=== PATIENT | female | born 1965 | race Caucasian/White ===

== ENCOUNTER 2025-02-07 13:13 | Outpatient (AMB) | payer MEDICARE, SELFPAY ==
--- NOTE | 2025-02-07 13:23 | MHC.AMNUTRGE ---
VS Expanded 02/07/25 13:41 02/20/25 09:20 Height 5 ft 4 in 5 ft 4 in Weight 183 lb 6.793 oz 183 lb BMI 31.5 31.4 Intake Visit Reasons: Obesity Nutrition Presentation Details: Pt presents for MNT for obesity class 1 Pt reports lack of meal routine, wants to work on meal planning food frequency fruits: 0-1/d vex/wk dairy :1-2/d fish: 0-1/wk starches >20 beverages: water, juice, low sugar beverages, tea, physical activity: ADL etoh/smoking----- take vit c 500 mg /d and vit d (4000 mcg/d) SAX-Sfryasp-Eg.Jeor Equation Height: 5 ft 4 in Weight: 183 lb Resting Metabolic Rate: 1384.12 Calculated Activity Level: Sedentary Calories Needed to Maintain Weight: 1660.94 Diagnosis Nutrition problem #1: overweight/obesity As related to (etiology) #1: diagnosis As evidenced by (sign/symptom) #1: knowledge deficit of diet Assessment & Plan Assessment & Plan (1) Obesity (BMI 30.0-34.9): Code(s): E66.811 - Obesity, class 1 Category: Medical Plan: current wt: 83 kg (03/02 ) est kcal needs as per MSJ: 1700 est protein needs as per 1 g/kg BW: 80 est fluid needs as per 30 ml/kg BW: 2500 Recommended fiber > 12 g /day and gradually increase up to 25-28 g /day or as tolerated Nutrition topics discussed : Reviewed (R), Pt verbalized understanding (V) , not applicable (N/A) R, : Healthy Plate Method Concept: R, V, N/A: Carbohydrates: food sources of carbohydrates, relationship of carbohydrates to blood glucose, fatty liver GI health. Recommended total amount of carbohydrates per meals and snack. Differences between simple carbohydrates and complex carbohydrates R, V, N/A: Lean protein foods including vegan , vegetarian sources of protein. Benefits of protein (including but not limited to healing, nutritional value , benefits in weight loss, glucose control R, : Fats : Source of fats, benefits of fats. Difference between saturated and unsaturated fats. Saturated fats and its contribution to inflammation R, V, N/A: Fiber: food sources and role of fiber in the diet (including but not limited to its role as a prebiotic, benefits in constipation, role in IBS , role in glucose control and cholesterol level) R, V, N/A: Hydration: role of hydration and prevention of dehydration or over hydration. Foods and water content. R, V, N/A: Vitamins and Minerals in foods and supplements R, V, N/A: Interpreting food labels, including serving size, macronutrients, vitamins, minerals, allergens, ingredient list , % daily value Patient Instructions: practice mindful eating follow healthy plate method at dinner (reduce total carb to 45-60 at dinner Coding Level of Care Code Nutr Indiv Intake (52917) Diagnoses Obesity (BMI 30.0-34.9) E66.811 Time Spent (min) 30
[2025-02-07 13:41] VITALS: BMI 31.5
--- OUTSIDE RECORDS SUMMARY | 2025-02-07 14:43 | XMS_ITS | Clinical Summary ---
Author Organization [facility] Address [address] [place] [address] Care Team Providers Care Roller Billet Mill Name Role Phone Eula Phillips APRN Primary Care Provider [phone] Social History Tobacco Use Types Packs/Day Years Used Date Smoking Tobacco: Never Assessed Comments Unknown Sex and Gender Information Value Date Recorded Sex Assigned at Not on file Legal Sex Female 3:33 PM EDT Gender Identity Not on file Sexual Orientation Not on file Plan of Treatment Health Maintenance Due Date Last Done Comments Hepatitis C Virus Screening 1963 HIV Screening 1976 DTaP/Tdap/Td Vaccines (1 - Tdap) 1982 Pneumococcal Vaccines 50+ (1 of 1 - PCV) 2013 Zoster (Shingles) Vaccine (1 of 2) 2013 COVID-19 Vaccine ( - 2023-2 5 season) 2025 RSV Vaccine 60 years and old er and Patients (1 - 1-dose 75+ series) 2038 Hepatitis B Vaccines Aged Out No long er eligible based on patient's age to complete this topic Care Teams Roller Billet Mill Relationship Specialty Start Date End Date Eula Phillips APRN PCP - General 03/02/21
--- OUTSIDE RECORDS SUMMARY | 2025-02-07 14:43 | XMS_ITS | Encounter Summary ---
Author Organization [facility] Address [address] [place] [address] Care Team Providers Care Cyanide Case Hardener Name Role Phone Eula Phillips APRN Primary Care Provider Encounter Details Date Type Department Care Team (Late st Contact Info) Description 03/02/2021 Scanned Document [facility] [address] [facility] [address] [place] [address] Provider, Rolanda, [address] [place] [address] Social History Tobacco Use Types Packs/Day Years Used Date Smoking Tobacco: Never Assessed Comments Unknown Sex and Gender Information Value Date Recorded Sex Assigned at Not on file Legal Sex Female 3:33 PM EDT Gender Identity Not on file Sexual Orientation Not on file documented as of this encounter Plan of Treatment Not on file documented as of this encounter Visit Diagnoses Not on filedocumented in this encounter Care Teams Cyanide Case Hardener Relationship Specialty Start Date End Date Eula Phillips APRN PCP - General 03/02/21 documented as of this encounter
--- OUTSIDE RECORDS SUMMARY | 2025-02-07 14:43 | XMS_ITS | Clinical Summary ---
[facility] Address [address] [place] [phone] Phone Care Team Providers Care Hearing Aid Assistant Name Role Phone Edin So MD Primary Care Provider [phone] Allergies No known active allergies Medications ascorbic acid, vitamin C, 500 mg capsule Take 500 mg by mouth. Active cholecalciferol (VITAMIN D-3) 5,000 Units tablet Take 4,000 mcg by mouth. Active lactobacillus acidoph-l.bulga r 100 million cell granules in packet Take 1 packet by mouth. Active ketoconazole (NIZORAL) 2 % cream Apply topically 1 (one) time each day. 30 g 2 Active Active Problems No known active problems Encounters Date Type Department Care Team Description 01/22/2025 1:30 PM EDT Office Visit Orthopedic Surgery [facility] [address] [facility] [address] [place] [address] Chris Santacruz DPM Fungal toenail infection 01/14/2025 9:30 AM EDT Treatment [facility] [address] [facility] [address] [place] [phone] Akhil Merida PTA Tightness of neck (Primary Dx) 01/11/2025 12:30 PM EDT Treatment [address] [address] Akhil Merida, ACCESS REPRESENTATIVE Tightness of neck (Primary Dx) 01/09/2025 12:30 PM EDT Treatment [address] [address] Samira Aguila, PT Tightness of neck (Primary Dx) 01/03/2025 1:30 PM EDT Treatment [address] [address] Akhil Merida, ACCESS REPRESENTATIVE Tightness of neck (Primary Dx) 12/26/2024 10:30 AM EDT Treatment [address] [phone] Akhil Merida, ACCESS REPRESENTATIVE Tightness of neck (Primary Dx) 12/24/2024 11:30 AM EDT Treatment [address] [address] Jim Avina, ACCESS REPRESENTATIVE Tightness of neck (Primary Dx) 12/18/2024 10:00 AM EDT Evaluation [address] [address] Samira Aguila, PT Tightness of neck 12/18/2024 Telephone Internal Medicine - [facility] [address] [place] [phone] Edin So MD from Last 3 Months Immunizations Immunization Administration Dates Next Due Tdap Tetanus diptheria acell ular pertussis (Boostrix; Adacel) 7yo and older 04/18/2018 Surgical History Surgery Date Site/Laterality Comments TONSILLECTOMY PROCEDURE: HISTORICAL TONSILLECTOMY Medical History Medical History Date Comments Depression DX:Depression Family History Medical History Relation Name Comments Hypertension Father No Known Problems Maternal Grandfather No Known Problems Maternal Grandmother Hypertension Mother No Known Problems Paternal Grandfather Stomach cancer Paternal Grandmother No Known Problems Sister 1 No Known Problems Sister 2 Breast cancer Neg Hx Relation Name Status Comments Father Maternal Grandfather Maternal Grandmother Mother Paternal Grandfather Paternal Grandmother Sister 1 Alive Sister 2 Alive Social History Tobacco Use Types Packs/Day Years Used Date Smoking Tobacco: Former Cigarettes Q uit: 05/09/2005 Smokeless Tobacco: Never Tobacco Cessation:Counseling Given: Not Answered Alcohol Use Standard Drinks/Week Comments Not Currently 0 (1 standard drink = 0.6 oz pur e alcohol) Comments No Sex and Gender Information Value Date Recorded Sex Assigned at Female 11/02/2024 2:01 PM EDT Legal Sex Female 4:00 PM EST Gender Identity Female 11/02/2024 2:01 PM EDT Sexual Orientation Not on file Obstetrics History Last Filed Vital Signs Vital Sign Reading Time Taken Comments Blood Pressure 135/80 10/31/2024 2:10 PM EDT Pulse 62 10/31/2024 1:49 PM EDT Temperature - - Respiratory Rate - - Oxygen Saturation - - Inhaled Oxygen Concentration - - Weight 83.6 kg (184 lb 3.2 oz) 10/31/2024 1:49 P M EDT Height 162.6 cm (5' 4 ) 10/31/2024 1:49 PM EDT Body Mass Index 31.62 10/31/2024 1:49 PM EDT Plan of Treatment Upcoming Encounters Date Type Department Care Team (Late st Contact Info) Description 04/10/2025 1:00 PM EST Office Visit Orthopedic Surgery [facility] [address] [phone] Chris Santacruz DPM [address] [phone] 11/01/2025 11:30 AM EDT Office Visit Internal Medicine - [facility] [address] [place] [address] Edin So MD [address] [place] [address] Health Maintenance Due Date Last Done Comments Cholesterol Screening (Lipid Panel) 04/07/2022 Colorectal Cancer Screening: Stool Based Tests (FOBT/FIT) 04/07/2022 Breast Cancer Screening 12/19/2023 12/19/19 22, 12/04/2021 Cervical Cancer Screening: Pap Smear 03/02/2024 03/02/2021 Depression Screening 05/09/2024 Influenza Vaccine (#1) 2025 8, 05/25/2017 Social Influencers of Health Screening 10/31/2025 10/31/2024 DTaP,Tdap,and Td Vaccines (2 - Td or Tdap) 04/18/2028 04/18/2018 RSV Immunization Adult Patients (1 - 1-dose 75+ series) 2038 COVID-19 Vaccine Discontinued HIB Vaccines Aged Out No longer eligi ble based on patient's age to complete this topic HIV Screening Discontinued HPV Vaccines Aged Out No longer eligi ble based on patient's age to complete this topic Hepatitis A Vaccines Aged Out No long er eligible based on patient's age to complete this topic Hepatitis B Vaccines Aged Out No long er eligible based on patient's age to complete this topic Hepatitis C Screening Discontinued IPV Vaccines Aged Out No longer eligi ble based on patient's age to complete this topic MMR Vaccines Aged Out No longer eligi ble based on patient's age to complete this topic Meningococcal ACWY Vaccine Aged Out N o longer eligible based on patient's age to complete this topic Meningococcal B Vaccine Aged Out No l onger eligible based on patient's age to complete this topic Pneumococcal Vaccine: 50+ Years Discontinued RSV Immunization Patients Under 20 months Aged Out No longer eligible based on patient's age to complete this topic Varicella Vaccines Aged Out No longer eligible based on patient's age to complete this topic Zoster Vaccines Discontinued Procedures Procedure Name Priority Date/Time Associated Diagnosis Comments DIAGNOSTIC MAMMOGRAPHY WITH CAD UNILATERAL Routine 12/18/2021 10:52 AM EDT Other abnormal and inconclusive findings on diagnostic imaging of breast PAP SMEAR Routine 03/02/2021 10:15 AM EDT from Last 3 Months or Most Recently Relevant to Health Maintenance Results * DIAGNOSTIC MAMMOGRAPHY WITH CAD UNILATERAL (12/18/2021 10:52 AM EDT) Anatomical Region Laterality Modality Mammography 12/07/2021 9:56 AM EDT Narrative 12/18/2021 11:05 AM EDT This is a summary report. The complete report is available in the patient's medical record. If you cannot access the medical record, please contact the sending organization for a detailed fax or copy. Exam: Unilateral left digital diagnostic mammogram and left breast ultrasound. History: Call back Findings: Patient is recalled from a screening mammogram performed 12/04/2021 for additional imaging on the left. 90 ML and spot compression MLO and CC views were performed with tomosynthesis. Persistent lobular circumscribed lesion at the 12 o'clock position. Sonography shows a corresponding 1.7 x 1.1 x 0.4 cm lobular avascular anechoic lesion with through-transmission compatible with a cyst located at the 12 o'clock position. The smaller focal asymmetry in the retroareolar breast does not persist on the additional mammographic views. Sonography shows no solid or cystic in the retroareolar breast. Impression: Benign breast cyst at the 12 o'clock position corresponds with the mammographic abnormality. No suspicious finding on callback imaging. Routine annual screening mammography recommended. BI-RADS 2-benign Procedure Note Mary Mark MD - 04/27/2022 This is a summary report. The complete report is available in thepatient's medical record. If you cannot access the medical record, pleasecontact the sending organization for a detailed fax or copy. Exam: Unilateral left digital diagnostic mammogram and left breastultrasound. History: Call back Findings: Patient is recalled from a screening mammogram performed12/04/2021 for additional imaging on the left. 90 ML and spot compression MLO and CC views were performed withtomosynthesis. Persistent lobular circumscribed lesion at the 12 o'clockposition. Sonography shows a corresponding 1.7 x 1.1 x 0.4 cm lobularavascular anechoic lesion with through-transmission compatible with a cystlocated at the 12 o'clock position. The smaller focal asymmetry in the retroareolar breast does not persist onthe additional mammographic views. Sonography shows no solid or cystic inthe retroareolar breast. Impression: Benign breast cyst at the 12 o'clock position corresponds with themammographic abnormality. No suspicious finding on callback imaging.Routine annual screening mammography recommended. BI-RADS 2-benign us Edin So MD IMG BI PROCEDURES Final Result * Pap smear (03/02/2021 10:15 AM EDT) Report Status CANCELED HISTOR ICAL TESTING LAB RESULTING AGENCY Comment: Result canceled by the ancillary. Result canceled by the ancillary. Clinical Information HISTORICAL TESTING LAB RESULTING AGENCY Comment:LAST PAPSMEAR 15YRS AGO NO DATE LMP HISTORICAL TESTING LAB RESULTING AGENCY Comment:05/09/2015 Previous Pap HISTORI KIM TESTING LAB RESULTING AGENCY Comment:15 YRS AGO Previous Biopsy HIST ORICAL TESTING LAB RESULTING AGENCY Comment:NONE GIVEN SPECIMEN SOURCE HIST ORICAL TESTING LAB RESULTING AGENCY Comment:Cervix Speciman Adequacy HI STORICAL TESTING LAB RESULTING AGENCY Comment: Satisfactory for evaluation. Endocervical/transformation zone component present. General Categorization CANCELED HISTORICAL TESTING LAB RESULTING AGENCY Comment: Result canceled by the ancillary. Result canceled by the ancillary. Cytology Result HIST ORICAL TESTING LAB RESULTING AGENCY Comment:Negative for intraep ithelial lesion or malignancy. Infection CANCELED HISTORICAL TESTING LAB RESULTING AGENCY Comment: Result canceled by the ancillary. Result canceled by the ancillary. Comment HISTORICAL TESTING LAB RESULTING AGENCY Comment: This Pap test has been evaluated with computer assisted technology. Grapple Skidder Operator HIS TORICAL TESTING LAB RESULTING AGENCY Comment: SL, CT(ASCP) CT screening location: [place] [address] Review [employer] CANCELED HISTORICAL TESTING LAB RESULTING AGENCY Comment: Result canceled by the ancillary. Result canceled by the ancillary. Pathologist CANCELED HISTORIC AL TESTING LAB RESULTING AGENCY Comment: Result canceled by the ancillary. Result canceled by the ancillary. Comment HISTORICAL TESTING LAB RESULTING AGENCY Comment: EXPLANATORY NOTE: The Pap is a screening test for cervical cancer. It is not a diagnostic test and is subject to false negative and false positive results. It is most reliable when a satisfactory sample, regularly obtained, is submitted with relevant clinical findings and history, and when the Pap result is evaluated along with historic and current clinical information. HPV RESULTS Not Detected HISTORICAL TESTING LAB RESULTING AGENCY Comment: Methodology: Chimney Builder-Mediated Amplification This assay detects E6/E7 viral messenger RNA (mRNA) from 14 high-risk HPV types (16,18,31,33,35,39,45,51,52,56,58,59,66,68). The analytical performance characteristics of this assay have been determined by [employer]. The modifications have not been cleared or approved by the FDA. This assay has been validated pursuant to the CLIA regulations and is used for clinical purposes. For additional information, please refer to http://education.Ongo.Ablexis/faq/NCW755d5 (This link if provided for information/ educational purposes only.) 03/02/2021 10:1 5 AM EDT Narrative HISTORICAL TESTING LAB RESULTING AGENCY - 03/04/2021 3:53 PM EDT [id number] Eula Phillips SIDE STAPLER LAB CYTOLOGY ORDERABLES Final Re sult HISTORICAL TESTING LAB RESULTING AGENCY from Last 3 Months or Most Recently Relevant to Health Maintenance Insurance [facility] [employer] Care Teams Hearing Aid Assistant Relationship Specialty Start Date End Date Edin So MD [address] [place], [place] [address] [place] [address] PCP - General Internal Medicine 02/26/21
--- OUTSIDE RECORDS SUMMARY | 2025-02-07 14:43 | XMS_ITS ---
Author Name [facility] Organization Unknown Care Team Organization Name Specialty Phone Email Start Date End Da te [facility] Abimbola Mott MD Primary Care 03/16/2022 12/26/2023 [facility] Eula Phillips Primary Care
--- OUTSIDE RECORDS SUMMARY | 2025-02-07 14:43 | XMS_ITS | Clinical Summary ---
Author Organization [facility] Address [address] [id number] Care Team Providers Care Recreation Coordinator Name Role Phone Unavailable Primary Care Provider Unavailabl e Allergies No known active allergies Medications Medication Sig Dispensed Refills Start Date End Date Status Ascorbic Acid (Vitamin C) 500 MG CAPS Take by mouth. 0 Active Cyanocobalamin (VITAMIN B 12 PO) Take by mouth. 0 Active Active Problems Problem Noted Date Diagnosed Date Encounter for gynecological examination without abnormal finding 03/02/2021 Cervical cancer screening 03/02/2021 Encounter for breast cancer screening using non-mammogram modality 03/02/2021 Colon cancer screening 03/02/2021 Class 1 obesity due to exces s calories without serious comorbidity with body mass index (BMI) of 34.0 to 34.9 in adult 03/02/2021 Post-menopausal 03/02/2021 Family History Medical History Relation Name Comments Dementia Father Dementia Mother Stomach cancer Paternal Grandmother Relation Name Status Comments Father Mother Paternal Grandmother Social History Tobacco Use Types Packs/Day Years Used Date Smoking Tobacco: Former Cigarettes Q uit: 03/02/2005 Smokeless Tobacco: Never Tobacco Cessation:Counseling Given: No Alcohol Use Standard Drinks/Week Comments Not Currently 0 (1 standard drink = 0.6 oz pur e alcohol) Sex and Gender Information Value Date Recorded Sex Assigned at Female 03/02/2021 9:19 AM EDT Gender Identity Female 03/02/2021 9:19 AM EDT Sexual Orientation Straight 03/02/2021 9: 19 AM EDT Job Start Date Occupation Industry Not on file Not on file Not on file Last Filed Vital Signs Vital Sign Reading Time Taken Comments Blood Pressure 138/86 03/02/2021 9:14 AM EDT Pulse - - Temperature 36.1 C (96.9 F) 03/02/2021 9:14 AM EDT Respiratory Rate - - Oxygen Saturation - - Inhaled Oxygen Concentration - - Weight 88.4 kg (194 lb 12.8 oz) 03/02/2021 9:14 AM EDT Height 160 cm (5' 3 ) 03/02/2021 9:14 AM EDT Body Mass Index 34.51 03/02/2021 9:14 AM EDT Plan of Treatment Health Maintenance Due Date Last Done Comments Hepatitis C Screening 1965 COVID-19 Vaccine (#1) 1963 DTap / Tdap / Td (1 - Tdap) 1982 Colon Cancer Screening (Colonoscopy) 2008 Breast Cancer Screening (Mammogram) 2013 Shingrix-Zoster Vaccine (1 of 2) 2013 BMI Counseling 03/02/2022 03/02/2021 Depression Screening 03/02/2022 03/02/2021 Preventative Health Evaluation 03/02/2022 03/02/2021 Cervical Cancer Screening (P ap Smear) 03/02/2024 03/02/2021 Influenza Vaccine (#1) 2025 RSV Adult > 60+ Yrs or Pregn ant (1 - 1-dose 75+ series) 2038 Hepatitis B Vaccines Aged Out No long er eligible based on patient's age to complete this topic Pneumococcal Vaccine Aged Out No long er eligible based on patient's age to complete this topic RSV Ped < 20 months Aged Out No longe r eligible based on patient's age to complete this topic
[2025-02-20 09:20] VITALS: BMI 31.4
== END 2025-02-07 14:05 | disposition home or self-care (01) ==
LOC: HO.ENCR 13:14
PROVIDERS: PCP Internal Medicine; Visit Provider Dietitian, Registered
DX: E66.811 Obesity, class 1 (principal)

== ENCOUNTER → 2025-02-07 13:13 | Outpatient (BNVA) | payer MEDICARE, SELFPAY | PROVIDERS: PCP Internal Medicine; Visit Provider Dietitian, Registered | DX: E66.811 Obesity, class 1 (principal); Z68.31 Body mass index [BMI] 31.0-31.9, adult; Z71.3 Dietary counseling and surveillance | CPT/HCPCS: 97802 ==